=== PATIENT | female | born 1990 | race Caucasian/White ===

== ENCOUNTER 2016-09-28 15:25 | Inpatient (IN) | payer BC ==
[2016-09-28] MEDS ORDERED: Misoprostol 200 MCG Tab PO PRN (15:51)
[2016-09-28] MEDS ORDERED: Water For Irrigation,Sterile 1,000 ML Container IRR PRN (15:51)
[2016-09-28] MEDS ORDERED: Lidocaine 1% 50 ML MDV INJECT PRN (15:51)
[2016-09-28] MEDS ORDERED: Carboprost Tromethamine 250 MCG/1 ML Amp IM PRN (15:51)
[2016-09-28] MEDS ORDERED: Methylergonovine 0.2 MG/1 ML Amp IM PRN (15:51)
[2016-09-28] MEDS ORDERED: Nalbuphine 10 MG/1 ML Vial IVPUSH PRN (15:51)
[2016-09-28] MEDS ORDERED: Butorphanol 1 MG/ML SDV IVPUSH PRN (15:51)
[2016-09-28] MEDS ORDERED: Sodium Chloride 0.9% 10 ML Syringe FLUSH PRN (15:52)
[2016-09-28] MEDS ORDERED: Sodium Chloride 0.9% 2.5 ML Syringe FLUSH PRN (15:52)
[2016-09-28] MEDS ORDERED: Oxytocin/Lactated Ringers 30 UNIT/500 ML BAG IV SCH ×2 (16:00→20:45)
[2016-09-28] MEDS: Lactated Ringers 1,000 ML IV SCH ×3 (16:08→18:58)
[2016-09-28] MEDS ORDERED: fentaNYL 100 MCG/2 ML SDV ONE (17:53)
[2016-09-28] MEDS ORDERED: Ropivacaine 0.2% 2 MG/ML 20 ML SDV ONE (17:54)
[2016-09-28] MEDS ORDERED: Ropivacaine HCl/PF 100 ML ONE (17:54)
[2016-09-28] MEDS ORDERED: ePHEDrine 50 MG/ML SDV ONE (18:22)
--- NOTE | 2016-09-28 18:42 | PCM.PREANE ---
Preanesthetic Assessment - ANESTHESIA/TRANSFUSION/FAMILY HX Anesthesia/Transfusion History: No Prior Transfusion(s), Prior Anesthesia Type of Anesthesia Reaction: Denies: Allergy, Anesthesia Awareness, Excessive Somnolence, Excessive Nausea/Vomiting, Excessive Itching, Excessive Shivering, Malignant Hyperthermia, Malignant Hyperthermia, Family History, Pseudocholinesterase Deficiency, Pseudocholinesterase Deficiency, Family History of, Urinary Retention, Unknown, Other (see below) Family History of Anesthesia Reaction: No Intubation History: Unknown - REVIEW OF SYSTEMS Constitutional: Reports: no symptoms MEDICAL ESTHETICIAN: Reports: no symptoms Respiratory: Reports: no symptoms Cardiovascular: Reports: no symptoms GI: Reports: no symptoms Other: Reports: diabetes (. Pt states sugars have been running around 100 when checked.) - PHYSICAL ASSESSMENT Height: 1.57 m Weight: 56.699 kg NPO Status Date: 09/28/16 NPO Status Time: 18:38 (cl liquids) ASA Class: 2 Mental Status: alert & oriented x3 Airway Class: Mallampati = 2 Dentition: Reports: normal dentition Thyro-Mental Finger Breadths: 3 Mouth Opening Finger Breadths: 3 ROM/Head Extension: full Respiratory Status: lungs clear to auscultation bilaterally Cardiovascular Status: regular rate & rhythm, normal S1, S2, no murmur, blood pressure WNL - LAB Values: Laboratory Last Values WBC 19.88 K/uL (4.0-11.0) H 09/28/16 16:02 RBC 4.22 M/uL (4.30-5.90) L 09/28/16 16:02 Hgb 13.0 g/dL (12.0-16.0) 09/28/16 16:02 Hct 38.4 % (36.0-46.0) 09/28/16 16:02 MCV 91.0 fL (80.0-98.0) 09/28/16 16:02 MCH 30.8 pg (27.0-32.0) 09/28/16 16:02 MCHC 33.9 g/dL (31.0-37.0) 09/28/16 16:02 RDW Std Deviation 44.8 fl (28.0-62.0) 09/28/16 16:02 RDW Coeff of Sree 14 % (11.0-15.0) 09/28/16 16:02 Plt Count 161 K/uL (150-400) 09/28/16 16:02 MPV 10.90 fL (7.40-12.00) 09/28/16 16:02 Nucleated RBC % 0.0 /100WBC 09/28/16 16:02 Nucleated RBCs # 0 K/uL 09/28/16 16:02 Blood Type A POSITIVE 09/28/16 16:02 Antibody Screen NEGATIVE 09/28/16 16:02 - ALLERGIES Allergies/Adverse Reactions: Allergies Allergy/AdvReac Type Severity Reaction Status Date / Time No Known Allergies Allergy Verified 02/09/15 15:20 - BLOOD Blood Available: Yes Product(s) Available: PRBC - ANESTHESIA PLAN Anesthesia Type Planned: epidural - ACKNOWLEDGEMENTS Pt an appropriate candidate for the planned anesthesia: Yes Alternatives and risks of anesthesia discussed w pt/guardian: Yes Pt/Guardian understands and agree with anesthesia plan: Yes PreAnesthesia Questionnaire HEENT History: Reports: Other (see below) 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: Neurological History: Reports: Migraines Endocrine/Metabolic History: Reports: Diabetes, gestational - SUBSTANCE USE Smoking Status *Q: Never Smoker Second Hand Smoke Exposure: No Recreational Drug Use History: No - HOME MEDS Home Medications: Home Meds Nitrofurantoin Macrocrystal [Macrodantin] 02/09/15 [History] - CURRENT (IN HOUSE) MEDS Current Meds: Current Medications Butorphanol Tartrate (Stadol) 1 mg IVPUSH Q1H PRN PRN Reason: Pain Carboprost Tromethamine (Hemabate Ds) 250 mcg IM ASDIRECTED PRN PRN Reason: Post Hemorrhage Lactated Ringer's (Ringers, Lactated) 1,000 mls @ 150 mls/hr IV ASDIRECTED [place] Last Admin: 09/28/16 18:03 Dose: 150 mls/hr Lidocaine HCl (Xylocaine 1%) 50 ml INJECT .ONCE PRN PRN Reason: Laceration repair Methylergonovine Maleate (Methergine) 0.2 mg IM ASDIRECTED PRN PRN Reason: Post Hemorrhage Misoprostol (Cytotec) 200 mcg PO .ONCE PRN PRN Reason: Post Hemorrhage Sodium Chloride (Saline Flush) 10 ml FLUSH ASDIRECTED PRN PRN Reason: Keep Vein Open Sodium Chloride (Saline Flush) 2.5 ml FLUSH ASDIRECTED PRN PRN Reason: Keep Vein Open Sterile Water (Sterile Water For Irrigation) 1,000 ml IRR ASDIRECTED PRN PRN Reason: delivery Discontinued Medications Ephedrine Sulfate (Ephedrine Sulfate) Confirm Administered Dose 50 mg .ROUTE .STK-MED ONE Stop: 09/28/16 18:23 Fentanyl (Sublimaze) Confirm Administered Dose 300 mcg .ROUTE .STK-MED ONE Stop: 09/28/16 17:54 Oxytocin/Lactated Ringer's (Pitocin In Lr 30 Units/500 Ml) 30 unit in 500 mls @ 999 mls/hr IV TITRATE [place] Stop: 09/28/16 16:31 Ropivacaine (Naropin 0.2%) Confirm Administered Dose 100 mls @ as directed .ROUTE .STK-MED ONE Stop: 09/28/16 17:55 Nalbuphine HCl (Nubain) 10 mg IVPUSH Q1H PRN PRN Reason: Pain (severe 7-10) Stop: 09/28/16 17:52 Ropivacaine (Naropin 0.2%) Confirm Administered Dose 20 ml .ROUTE .STK-MED ONE Stop: 09/28/16 17:55 - Free Text/Narrative Note: Labor Analgesia/Epidural Procedure start date: 09/28/16 time: 1754 Attending provider aware Chart reviewed Permit signed Labs reviewed VS/FHR reviewed Pt identified/ID band Pt assessed Risks/Benefits discussed and accepted Monitors in place (BP, HR, SPO2) Patient, Site, Procedure Verification, Pause. Pain "7/10" Fluid bolus infused (fluid type and amount): LR infusing/ 1000 ml infused prior to bolus Position: Sitting @ 1801 Prep: Betadine X 3 Sterile Drape Intradermal Wheal: 3 ml 1% Lidocaine Regional placement level: L3-4 Needle: 17 g Tuohy Other: Approach: Midline Technique: JEFF glass syringe with 3 ml Sterile water JEFF needle depth: 4 cm Paresthesia: None Fluid Obtained: None Catheter insertion time: 1807 Catheter depth at skin: 20 cm Test Dose Time: 1809 RX: 3 ml 1.5% lidocaine with 1:200,000 epi Response: Negative Loading dose Time: 1817-5345 RX: 100 mcg fentanyl followed by 2 ml 0.2% ropivacaine Pt position: semi fowlers with ALMITA Continuous infusion Start Time: 1829 RX: 100 ml ropivacaine with 200 mcg fentanyl added [2mcg/ml] Continuous infusion rate: 6 ml/h LEVEL VIAL CURVATURE GAUGER bolus option: 5 ml q 15 min Pt response Post procedure pain level: "0/10" VS and FHR monitored in unit post placement (See OB traceview for documentation. ) Pt had two episodes of symptomatic hypotension. She reports that she has had "lightheadedness" when having her ultrasounds done at the clinic. She was treated both times with ephedrine 10 mg and put on her left side with immediate relief of symptoms and normotensive blood pressures. Will keep patient side- lying to tolerate. Nursing staff advised. 1718: Pt now is stable. Continues to be semi fowlers with ALMITA. Procedure end date: 09/28/16 time: 1718
[2016-09-28] MEDS ORDERED: Misoprostol 25 MCG (1/4 of 100 MCG) Tab VAG PRN (20:38)
[2016-09-28] MEDS ORDERED: Terbutaline 1 MG/ML SDV SUBCUT PRN (20:38)
[2016-09-28] MEDS ORDERED: Misoprostol 25 MCG (1/4 of 100 MCG) Tab VAG SCH (20:45)
--- NOTE | 2016-09-28 22:22 | PCM.SN ---
- Free Text/Narrative Note: Pt reporting increase in pressure/pain with contractions. Has pushed bolus button but continues to report significant increase in pain. Nursing staff perform vaginal exam to find pt now dilated to 8 cm. BP stable. Epidural rate increased to 8 ml /hr.
[2016-09-28] MEDS ORDERED: Benzocaine/Menthol 20%-0.5% Spray 78 GM Cannister TOP PRN (23:09)
[2016-09-28] MEDS ORDERED: Ibuprofen 400 MG Tab PO PRN (23:09)
[2016-09-28] MEDS ORDERED: oxyCODONE 5 MG Tab PO PRN (23:09)
[2016-09-28] MEDS ORDERED: Aluminum Hydroxide/Magnesium Hydroxide/Simethicone Susp 30 ML Cup PO PRN (23:09)
[2016-09-28] MEDS ORDERED: Docusate Sodium 100 MG Cap PO PRN (23:09)
[2016-09-28] MEDS ORDERED: Bisacodyl 10 MG Supp RECTAL PRN (23:09)
[2016-09-28] MEDS ORDERED: Ibuprofen 800 MG Tab PO PRN (23:09)
[2016-09-28] MEDS ORDERED: Lanolin 100% Cream 7 GM Tube TOP PRN (23:09)
[2016-09-28] MEDS ORDERED: Witch Hazel Medicated Pads 40/Jar TOP PRN (23:09)
[2016-09-28] MEDS ORDERED: Acetaminophen 500 MG Tab PO PRN ×2 (23:09)
--- NOTE | 2016-09-29 09:16 | PCM.PNPP ---
- General Info Date of Service: 09/29/16 Functional Status: Reports: pain controlled, tolerating diet, ambulating, urinating - Review of Systems General: Denies: fever, weakness Pulmonary: Denies: shortness of breath Cardiovascular: Denies: chest pain, palpitations, lightheadedness Gastrointestinal: Denies: Abdominal pain, Nausea, Vomiting Genitourinary: Denies: flank pain Musculoskeletal: Reports: no symptoms Psychiatric: Reports: no symptoms - General Info Date of Service: 09/29/16 - Patient Data Vital Signs - most recent: Last Vital Signs Temp 36.5 C 09/29/16 08:22 Pulse 82 09/29/16 08:22 Resp 17 09/29/16 08:22 BP 100/71 09/29/16 08:22 Pulse Ox 96 09/29/16 08:22 Weight - most recent: 56.699 kg Lab Results - last 24 hrs: Laboratory Results - last 24 hr 09/28/16 09/28/16 09/28/16 Range/Units 16:02 16:02 20:56 WBC 19.88 H (4.0-11.0) K/uL RBC 4.22 L (4.30-5.90) M/uL Hgb 13.0 (12.0-16.0) g/dL Hct 38.4 (36.0-46.0) % MCV 91.0 (80.0-98.0) fL MCH 30.8 (27.0-32.0) pg MCHC 33.9 (31.0-37.0) g/dL RDW Std Deviation 44.8 (28.0-62.0) fl RDW Coeff of Sree 14 (11.0-15.0) % Plt Count 161 (150-400) K/uL MPV 10.90 (7.40-12.00) fL Nucleated RBC % 0.0 /100WBC Nucleated RBCs # 0 K/uL POC Glucose 97 (60-110) mg/dL Fasting Glucose (60-110) mg/dL Blood Type A POSITIVE Antibody Screen NEGATIVE 09/29/16 09/29/16 Range/Units 06:10 06:10 WBC (4.0-11.0) K/uL RBC (4.30-5.90) M/uL Hgb 11.8 L (12.0-16.0) g/dL Hct 35.2 L (36.0-46.0) % MCV (80.0-98.0) fL MCH (27.0-32.0) pg MCHC (31.0-37.0) g/dL RDW Std Deviation (28.0-62.0) fl RDW Coeff of Sree (11.0-15.0) % Plt Count (150-400) K/uL MPV (7.40-12.00) fL Nucleated RBC % /100WBC Nucleated RBCs # K/uL POC Glucose (60-110) mg/dL Fasting Glucose 88 (60-110) mg/dL Blood Type Antibody Screen Med Orders - Current: Current Medications Acetaminophen (Tylenol Extra Strength) 500 mg PO Q4H PRN PRN Reason: Pain Acetaminophen (Tylenol Extra Strength) 1,000 mg PO Q4H PRN PRN Reason: Pain Al Hydroxide/Mg Hydroxide (Mag-Al Plus) 30 ml PO Q8H PRN PRN Reason: Heartburn Benzocaine/Menthol (Dermoplast Pain Relief 20%-0.5% [place]) 78 gm TOP ASDIRECTED PRN PRN Reason: Perineal Comfort Measure Last Admin: 09/29/16 02:06 Dose: 1 canister Bisacodyl (Dulcolax) 10 mg RECTAL ONETIME PRN PRN Reason: Constipation Carboprost Tromethamine (Hemabate Ds) 250 mcg IM ASDIRECTED PRN PRN Reason: Post Hemorrhage Docusate Sodium (Colace) 100 mg PO BID PRN PRN Reason: Constipation Last Admin: 09/29/16 09:04 Dose: 100 mg Emollient Ointment (Lansinoh Hpa) 0 gm TOP ASDIRECTED PRN PRN Reason: Sore Nipples Last Admin: 09/29/16 02:06 Dose: 1 applicful Lactated Ringer's (Ringers, Lactated) 1,000 mls @ 150 mls/hr IV ASDIRECTED [place] Last Admin: 09/28/16 18:58 Dose: 150 mls/hr Oxytocin/Lactated Ringer's (Pitocin In Lr 30 Units/500 Ml) 30 unit in 500 mls @ 2 mls/hr IV TITRATE [place]; 2 MUNITS/MIN PRN Reason: Protocol Last Titration: 09/28/16 22:46 Dose: 300 mls/hr Ibuprofen (Motrin) 400 mg PO Q4H PRN PRN Reason: Pain Ibuprofen (Motrin) 800 mg PO Q6H PRN PRN Reason: Pain Last Admin: 09/29/16 09:05 Dose: 800 mg Methylergonovine Maleate (Methergine) 0.2 mg IM ASDIRECTED PRN PRN Reason: Post Hemorrhage Oxycodone HCl (Oxycodone) 5 mg PO Q2H PRN PRN Reason: Pain Sodium Chloride (Saline Flush) 10 ml FLUSH ASDIRECTED PRN PRN Reason: Keep Vein Open Witch Suze (Tucks) 1 pad TOP ASDIRECTED PRN PRN Reason: comfort care Discontinued Medications Butorphanol Tartrate (Stadol) 1 mg IVPUSH Q1H PRN PRN Reason: Pain Ephedrine Sulfate (Ephedrine Sulfate) Confirm Administered Dose 50 mg .ROUTE .STK-MED ONE Stop: 09/28/16 18:23 Last Admin: 09/29/16 08:35 Dose: Not Given Fentanyl (Sublimaze) Confirm Administered Dose 300 mcg .ROUTE .STK-MED ONE Stop: 09/28/16 17:54 Last Admin: 09/29/16 08:31 Dose: Not Given Oxytocin/Lactated Ringer's (Pitocin In Lr 30 Units/500 Ml) 30 unit in 500 mls @ 999 mls/hr IV TITRATE [place] Stop: 09/28/16 16:31 Last Admin: 09/29/16 08:31 Dose: Not Given Ropivacaine (Naropin 0.2%) Confirm Administered Dose 100 mls @ as directed .ROUTE .STK-MED ONE Stop: 09/28/16 17:55 Last Admin: 09/29/16 08:35 Dose: Not Given Lidocaine HCl (Xylocaine 1%) 50 ml INJECT .ONCE PRN PRN Reason: Laceration repair Misoprostol (Cytotec) 200 mcg PO .ONCE PRN PRN Reason: Post Hemorrhage Misoprostol (Cytotec) 25 mcg VAG .ONCE [place] Misoprostol (Cytotec) 25 mcg VAG Q4H PRN PRN Reason: Cervical Ripening Stop: 09/30/16 00:39 Nalbuphine HCl (Nubain) 10 mg IVPUSH Q1H PRN PRN Reason: Pain (severe 7-10) Stop: 09/28/16 17:52 Ropivacaine (Naropin 0.2%) Confirm Administered Dose 20 ml .ROUTE .STK-MED ONE Stop: 09/28/16 17:55 Last Admin: 09/29/16 08:34 Dose: Not Given Sodium Chloride (Saline Flush) 2.5 ml FLUSH ASDIRECTED PRN PRN Reason: Keep Vein Open Sterile Water (Sterile Water For Irrigation) 1,000 ml IRR ASDIRECTED PRN PRN Reason: delivery Terbutaline Sulfate (Brethine) 0.25 mg SUBCUT ASDIRECTED PRN PRN Reason: Tacysystole - Interaction Support Person: - Recovery Exam Fundal Tone: Firm Fundal Level: At Umbilicus Fundal Placement: Midline Lochia Amount: Scant Lochia Color: Rubra/Red Perineum Description: Intact, Minimal Bruising/Swelling Episiotomy/Laceration: None Bladder Status: Voiding - Exam General: alert, oriented Lungs: Normal respiratory effort Cardiovascular: regular rate, regular rhythm Abdomen: bowel sounds present, soft. No: CVA tenderness Extremities: no calf tenderness Skin: warm, dry, intact Psy/Mental Status: alert, normal affect - Problem List & Annotations (1) Vaginal delivery SNOMED Code(s): 263711414 Code(s): O80 - ENCOUNTER FOR FULL-TERM UNCOMPLICATED DELIVERY Status: Acute Current Visit: Yes - Problem List Review Problem List Initiated/Reviewed/Updated: Yes - My Orders Last 24 Hours: My Active Orders 09/28/16 20:38 Bedrest Bathroom Privileges [RC] ASDIRECTED Communication Order [RC] ASDIRECTED Communication Order [RC] ASDIRECTED Oxygen Therapy [RC] ASDIRECTED Vaginal Exam [RC] PRN Vital Signs [RC] PER UNIT ROUTINE 09/28/16 20:43 Blood Glucose Check, Bedside [RC] Q6H 09/28/16 20:45 Oxytocin/Lactated Ringers [Pitocin in LR 30 Units/500 ML] 30 unit in 500 ml IV TITRATE 09/28/16 23:09 Patient Status [ADT] Routine May Shower [RC] ASDIRECTED Up ad Pia [RC] ASDIRECTED Vital Signs [RC] PER UNIT ROUTINE Acetaminophen [Tylenol Extra Strength] 1,000 mg PO Q4H PRN Acetaminophen [Tylenol Extra Strength] 500 mg PO Q4H PRN Alum Hydrox/Mag Hydrox/Simeth [Mag-Al Plus] 30 ml PO Q8H PRN Benzocaine/Menthol [Dermoplast Pain Relief 20%-0.5% [place]] 78 gm TOP ASDIRECTED PRN Bisacodyl [Dulcolax] 10 mg RECTAL ONETIME PRN Docusate Sodium [Colace] 100 mg PO BID PRN Ibuprofen [Motrin] 400 mg PO Q4H PRN Ibuprofen [Motrin] 800 mg PO Q6H PRN Lanolin [Lansinoh HPA] See Dose Instructions TOP ASDIRECTED PRN Witch Suze [Tucks] 1 pad TOP ASDIRECTED PRN oxyCODONE 5 mg PO Q2H PRN Assess Lochia [WOMSER] Per Unit Routine Assess Uterine Involution [WOMSER] Per Unit Routine Ice Therapy [OM.PC] Per Unit Routine Perineal Care [OM.PC] Per Unit Routine Peripheral IV Discontinue [OM.PC] Routine Sitz Bath [OM.PC] Per Unit Routine 09/28/16 Dinner Regular Diet [DIET] - Assessment Assessment:: PPD 1 status post /IP - Plan Plan:: Patient is feeling well, continue cares.
--- NOTE | 2016-09-29 16:38 | PCM48HPAN ---
Post Anesthesia Note - EVALUATION WITHIN 48HRS OF ANESTHETIC Vital Signs in Normal Range: Yes Patient Participated in Evaluation: Yes Respiratory Function Stable: Yes Airway Patent: Yes Cardiovascular Function Stable: Yes Hydration Status Stable: Yes Pain Control Satisfactory: Yes Nausea and Vomiting Control Satisfactory: Yes Mental Status Recovered: Yes - COMMENTS/OBSERVATIONS Free Text/Narrative:: Pt reports return of full sensation and motor movement to lower extremities. Denies headache or any other problems associated with epidural.
--- NOTE | 2016-09-30 09:46 | PCM.PNPP ---
- General Info Date of Service: 09/30/16 Functional Status: Reports: pain controlled, tolerating diet, ambulating - Review of Systems General: Denies: fever, weakness Cardiovascular: Denies: chest pain, palpitations, lightheadedness Gastrointestinal: Denies: Nausea, Vomiting Genitourinary: Denies: flank pain Neurological: Reports: no symptoms - General Info Date of Service: 09/30/16 - Patient Data Vital Signs - most recent: Last Vital Signs Temp 36.8 C 09/30/16 04:00 Pulse 80 09/30/16 04:00 Resp 20 09/30/16 04:00 BP 99/59 L 09/30/16 04:00 Pulse Ox 98 09/30/16 04:00 Weight - most recent: 56.699 kg Med Orders - Current: Current Medications Acetaminophen (Tylenol Extra Strength) 500 mg PO Q4H PRN PRN Reason: Pain Acetaminophen (Tylenol Extra Strength) 1,000 mg PO Q4H PRN PRN Reason: Pain Al Hydroxide/Mg Hydroxide (Mag-Al Plus) 30 ml PO Q8H PRN PRN Reason: Heartburn Benzocaine/Menthol (Dermoplast Pain Relief 20%-0.5% [place]) 78 gm TOP ASDIRECTED PRN PRN Reason: Perineal Comfort Measure Last Admin: 09/29/16 02:06 Dose: 1 canister Bisacodyl (Dulcolax) 10 mg RECTAL ONETIME PRN PRN Reason: Constipation Carboprost Tromethamine (Hemabate Ds) 250 mcg IM ASDIRECTED PRN PRN Reason: Post Hemorrhage Docusate Sodium (Colace) 100 mg PO BID PRN PRN Reason: Constipation Last Admin: 09/29/16 09:04 Dose: 100 mg Emollient Ointment (Lansinoh Hpa) 0 gm TOP ASDIRECTED PRN PRN Reason: Sore Nipples Last Admin: 09/29/16 02:06 Dose: 1 applicful Lactated Ringer's (Ringers, Lactated) 1,000 mls @ 150 mls/hr IV ASDIRECTED [place] Last Admin: 09/28/16 18:58 Dose: 150 mls/hr Oxytocin/Lactated Ringer's (Pitocin In Lr 30 Units/500 Ml) 30 unit in 500 mls @ 2 mls/hr IV TITRATE [place]; 2 MUNITS/MIN PRN Reason: Protocol Last Titration: 09/28/16 22:46 Dose: 300 mls/hr Ibuprofen (Motrin) 400 mg PO Q4H PRN PRN Reason: Pain Ibuprofen (Motrin) 800 mg PO Q6H PRN PRN Reason: Pain Last Admin: 09/29/16 09:05 Dose: 800 mg Methylergonovine Maleate (Methergine) 0.2 mg IM ASDIRECTED PRN PRN Reason: Post Hemorrhage Oxycodone HCl (Oxycodone) 5 mg PO Q2H PRN PRN Reason: Pain Sodium Chloride (Saline Flush) 10 ml FLUSH ASDIRECTED PRN PRN Reason: Keep Vein Open Witch Suze (Tucks) 1 pad TOP ASDIRECTED PRN PRN Reason: comfort care Discontinued Medications Butorphanol Tartrate (Stadol) 1 mg IVPUSH Q1H PRN PRN Reason: Pain Ephedrine Sulfate (Ephedrine Sulfate) Confirm Administered Dose 50 mg .ROUTE .STK-MED ONE Stop: 09/28/16 18:23 Last Admin: 09/29/16 08:35 Dose: Not Given Fentanyl (Sublimaze) Confirm Administered Dose 300 mcg .ROUTE .STK-MED ONE Stop: 09/28/16 17:54 Last Admin: 09/29/16 08:31 Dose: Not Given Oxytocin/Lactated Ringer's (Pitocin In Lr 30 Units/500 Ml) 30 unit in 500 mls @ 999 mls/hr IV TITRATE [place] Stop: 09/28/16 16:31 Last Admin: 09/29/16 08:31 Dose: Not Given Ropivacaine (Naropin 0.2%) Confirm Administered Dose 100 mls @ as directed .ROUTE .STK-MED ONE Stop: 09/28/16 17:55 Last Admin: 09/29/16 08:35 Dose: Not Given Lidocaine HCl (Xylocaine 1%) 50 ml INJECT .ONCE PRN PRN Reason: Laceration repair Misoprostol (Cytotec) 200 mcg PO .ONCE PRN PRN Reason: Post Hemorrhage Misoprostol (Cytotec) 25 mcg VAG .ONCE [place] Misoprostol (Cytotec) 25 mcg VAG Q4H PRN PRN Reason: Cervical Ripening Stop: 09/30/16 00:39 Nalbuphine HCl (Nubain) 10 mg IVPUSH Q1H PRN PRN Reason: Pain (severe 7-10) Stop: 09/28/16 17:52 Ropivacaine (Naropin 0.2%) Confirm Administered Dose 20 ml .ROUTE .STK-MED ONE Stop: 09/28/16 17:55 Last Admin: 09/29/16 08:34 Dose: Not Given Sodium Chloride (Saline Flush) 2.5 ml FLUSH ASDIRECTED PRN PRN Reason: Keep Vein Open Sterile Water (Sterile Water For Irrigation) 1,000 ml IRR ASDIRECTED PRN PRN Reason: delivery Terbutaline Sulfate (Brethine) 0.25 mg SUBCUT ASDIRECTED PRN PRN Reason: Tacysystole - Interaction Infant Disposition, : [place] in Room with Family Infant Feeding: Breastfed ; Nursed Well Support Person: - Recovery Exam Fundal Tone: Firm Fundal Level: 1 Fingerbreadths Below Umbilicus Fundal Placement: Midline Lochia Amount: Scant Lochia Color: Rubra/Red Perineum Description: Intact, Minimal Bruising/Swelling Episiotomy/Laceration: None Bladder Status: Voiding Urinary Elimination: Voided - Exam General: alert, oriented Lungs: Normal respiratory effort Cardiovascular: regular rate, regular rhythm Abdomen: bowel sounds present, soft. No: CVA tenderness Skin: warm, dry, intact Psy/Mental Status: alert, normal affect - Problem List & Annotations (1) Vaginal delivery SNOMED Code(s): 875574218 Code(s): O80 - ENCOUNTER FOR FULL-TERM UNCOMPLICATED DELIVERY Status: Acute Current Visit: Yes - Problem List Review Problem List Initiated/Reviewed/Updated: Yes - My Orders Last 24 Hours: My Active Orders 09/30/16 09:44 Ready for Discharge [RC] PER UNIT ROUTINE - Assessment Assessment:: PPD 2 status post /IP - Plan Plan:: Patient is ready to go home. Discharge instructions reviewed. Infection and bleeding warnings reviwed. Discharge to home with follow up at [facility] 6weeks. Will need 75 gm GTT at PP visit.
[2016-09-30 09:49] VITALS: BP 108/76
--- NOTE | 2016-10-01 06:27 | OR ---
SURGEON: Carmen Chun M.D. DATE OF PROCEDURE: 09/28/2016 PREOPERATIVE DIAGNOSES: 1. A 39 and 6th week intrauterine . 2. Gestational diabetes. POSTOPERATIVE DIAGNOSES: 1. A 39 and 6th week intrauterine . 2. Gestational diabetes. PROCEDURE: Spontaneous-vaginal delivery, intact perineum. ESTIMATED BLOOD LOSS: 250 mL. ANESTHESIA: Epidural. COMPLICATIONS: None. FINDINGS: Viable female. scores 9 at 1 minute, 9 at 5 minutes. Weight 2730 g. Spontaneous delivery, intact placenta, 3-vessel cord. DISPOSITION: to nursery, mom in LDRP. PROCEDURE IN DETAIL: Juli is a 26-year-old, G2, P1-0-0-1, at 39 and 6th weeks' gestational age, who presented to Labor and Delivery this afternoon with contractions. On initial examination, it was felt that she has had some subtle cervical change from 4 cm dilatation the day before in clinic to 5 cm. Therefore, the patient was admitted by her attending physician, and underwent regional anesthesia in the form of the epidural. Her contractions; however, were only 5-6 minutes apart and with followup examination shortly after 8 p.m., she was still found to be 5 cm, 70% effaced, -2 station; therefore, artificial rupture of membranes was performed as she is group B beta strep negative. Clear fluid was returned. An IUPC was placed and Pitocin was initiated. heart tones were 140s with variability. The patient responded nicely to this. With initiation of Pitocin, she began to progress fairly quickly and shortly after 10 p.m., was found to be complete, 100% effaced at a +1 station. Upon my arrival, the patient was placed in modified dorsal lithotomy position and was prepped and draped in usual aseptic manner. At this time, she was found to be complete, 100% effaced, +2 station. She was able to initiate pushing efforts, pushed adequately and was able to deliver infant's head atraumatically, spontaneously, followed by anterior shoulder, posterior shoulder, and reminder of the body without difficulty. The nuchal cord x1 was reduced manually. The infant's oropharynx and nares were bulb suctioned. Cord was clamped x2 and cut. was handed off to her mother, to attending nursing staff at her side. Cord arterial, cord venous, cord blood sampling were obtained. Light suprapubic pressure was applied while the placenta was delivered spontaneously intact. Vigorous fundal uterine massage was then applied with 30 units of Pitocin was delivered in 500 mL of IV fluid. Upon inspection of cervix, vaginal sidewalls, and perineum, these were found to be intact. The patient tolerated the procedure well. Hemostasis was evident. Sponge count was correct. The patient remained in LDRP, in nursery station. ROMAINE / MARCO /[id number] KADEEM
== END 2016-09-30 11:55 | disposition home or self-care (01) | DRG 560 ==
LOC: MW.OBCHECK 15:25 → MW.OB 15:51 → OBSVTOIN 23:23
PROVIDERS: ADMIT Obstetrics & Gynecology; ATTEND Obstetrics & Gynecology
PROC: 10E0XZZ Delivery of Products of Conception, External Approach (ICD-10-PCS; principal; 2016-09-28)
PROC: 10907ZC Drainage of Amniotic Fluid, Therapeutic from Products of Conception, Via Natural or Artificial Opening (ICD-10-PCS; 2016-09-28)
DX: O24.429 Gestational diabetes mellitus in childbirth, unspecified control (principal); Z3A.39 39 weeks gestation of pregnancy; Z37.0 Single live birth
CPT/HCPCS: 01967; 36415; 59025; 82947; 82962; 85014; 85018; 85027; 86850; 86900; 86901; A9270-GY; J2795; J3010; J7120